=== PATIENT | female | born 2005 | race Two or more races ===

== ENCOUNTER 2025-05-23 11:26 | Emergency (ER) | payer OTHER ==
[~2025-05-23] VITALS: Ht 162.6 cm; Wt 71.7 kg
[2025-05-23 14:03] LABS: BASO % 0.4 % (0.1-1.2); EOS # 0.09 (0.04-0.54); EOS % 1.3 % (0.7-7.0); LYMPH # 1.97 (1.18-3.74); LYMPH % 28.8 % (19.3-53.1); MEAN PLATELET VOLUME 9.70 fl (9.4-12.4); MONO # 0.56 (0.24-0.82); MONO % 8.2 % (4.7-12.5); NEUT # 4.17 (1.56-6.13); NEUT % 61.2 % (34.0-71.1); RED CELL DISTRIBUTION WIDTH 13.0 % (11.6-14.4)
[2025-05-23 14:29] LABS: BUN CREA RATIO 11.0 (7.0-25.0); CREATININE SERUM 0.64 mg/dL (0.55-1.02); GFR 116.04; GLUCOSE FASTING 92.0 mg/dL (65-100); OSMOLALITY SERUM 279.0 MOSM/KG (275-295)
== END 2025-05-23 15:24 | disposition home or self-care (01) ==
LOC: ER 11:26
PROVIDERS: Emergency Medicine
DX: E16.1 Other hypoglycemia (principal); R42 Dizziness and giddiness; R00.2 Palpitations; Z91.013 Allergy to seafood